=== PATIENT | female | born 1990 | race Caucasian/White ===

== ENCOUNTER → 2017-04-12 | Outpatient (CLI) | payer OTHER ==
--- NOTE | 2017-04-12 16:09 | XCELERA REPORT ---
[address] [address] Lower Extremity Venous Evaluation Name: ED FELIZ Age: 27 yrs Gender: Female : 1990 Patient Status: Outpatient Patient Location: Study Date: 04/12/2017 01:06 PM Procedure: Color flow and duplex imaging bilaterally of the veins of the lower extremities as well as the Common Femoral veins. Reason For Study: CALF PAIN Ordering Physician: MICHELLE MCKEON PA-C Performed By: Sunshine Munguia Right Sided Venous Evaluation Normal vessel filling wall to wall, compression and augmentation as well as Colour flow down to the infrageniculate veins. Left Sided Venous Evaluation Normal vessel filling wall to wall, compression and augmentation as well as Colour flow down to the infrageniculate veins. Interpretation Summary No duplex evidence of DVT or obstruction in the bilateral lower extremities. : MICHELLE MCKEON PA-C > Joe Swartz
== END ==
LOC: SP 12:56
PROVIDERS: ATTEND Physician Assistant
DX: M79.661 Pain in right lower leg (principal); M79.662 Pain in left lower leg
CPT/HCPCS: 93970

== ENCOUNTER 2017-04-15 10:59 | Emergency (ER) | payer OTHER ==
[2017-04-15 11:10] VITALS: BP 130/81
[2017-04-15] MEDS ORDERED: ACETAMINOPHEN 325 MG TABLET PO ONE (11:42)
[2017-04-15 12:09] LABS: APPEARANCE,URINE SLIGHTLY-CLOUDY; BILIRUBIN,URINE NEGATIVE (NEGATIVE); GLUCOSE, URINE NEGATIVE (NEGATIVE); KETONES,URINE NEGATIVE (NEGATIVE); LEUKOCYTE ESTERASE,URINE NEGATIVE (NEGATIVE); NITRITE,URINE NEGATIVE (NEGATIVE); PROTEIN,URINE NEGATIVE (NEGATIVE); URINE SPECIFIC GRAVITY 1.008; UROBILINOGEN,URINE NEGATIVE mg/dL (<2.0)
--- NOTE | 2017-04-15 12:25 | ER Document Report ---
ED Extremity Problem, Lower - General Chief Complaint: Leg Pain Stated Complaint: SWELLING OF HAND Time Seen by Provider: 04/15/17 11:17 Mode of Arrival: Ambulatory Information source: Patient Notes: 27-year-old female presents to ED for swollen hands and feet. She states she has been to her primary doctor and they did labs and told her they were not sure why her legs and feet or swelling she states now her left hand is swelling. I will do a urine to check for any protein in the urine and there will have her follow-up with her primary doctor. TRAVEL OUTSIDE OF THE [place] IN LAST 30 DAYS: No - HPI Patient complains to provider of: Swelling Location: Foot, Leg - And hands Occurred: Last week Onset/Duration: Intermittent Quality of pain: Pressure Severity: Moderate Pain Level: 3 Recent injury: No Associated symptoms: Other - Pain and swelling to her hands and feet and legs Exacerbated by: Hanging down Relieved by: Elevation - Related Data Allergies/Adverse Reactions: No Known Allergies Allergy (Verified 04/15/17 11:08) Past Medical History - General Information source: Patient - Social History Smoking Status: Never Smoker Cigarette use (# per day): No Chew tobacco use (# tins/day): No Smoking Education Provided: No Frequency of alcohol use: Rare Drug Abuse: None Lives with: Family Family History: Arthritis, CAD, DM, Hyperlipidemia, Hypertension, Thyroid Disfunction Patient has suicidal ideation: No Patient has homicidal ideation: No - Past Medical History Cardiac Medical History: Reports: None Pulmonary Medical History: Reports: Hx Asthma EENT Medical History: Reports: None Neurological Medical History: Reports: Hx Migraine Endocrine Medical History: Reports: None Renal/ Medical History: Reports: Other - Uterine fibroids Malignancy Medical History: Reports: None GI Medical History: Reports: None Musculoskeltal Medical History: Reports Hx Musculoskeletal Trauma Skin Medical History: Reports None Psychiatric Medical History: Reports: None Traumatic Medical History: Reports: None Past Surgical History: Reports: Hx Myringotomy, Hx Oral Surgery - wisdom teeth, Hx Orthopedic Surgery, Hx Tonsillectomy - 2014 - Immunizations Immunizations up to date: Yes Hx Diphtheria, Pertussis, Tetanus Vaccination: Yes Review of Systems - Review of Systems Constitutional: No symptoms reported EENT: No symptoms reported Cardiovascular: No symptoms reported Respiratory: No symptoms reported Gastrointestinal: No symptoms reported Genitourinary: No symptoms reported Female Genitourinary: No symptoms reported Musculoskeletal: Leg swelling, Ankle swelling, Other - Swelling left hand Skin: No symptoms reported Hematologic/Lymphatic: No symptoms reported Neurological/Psychological: No symptoms reported -: Yes All other systems reviewed and negative Physical Exam - Vital signs Vitals: Temp Pulse Resp BP Pulse Ox 98.3 F 87 20 130/81 H 100 04/15/17 11:09 04/15/17 11:09 04/15/17 11:09 04/15/17 11:09 04/15/17 11:09 Interpretation: Normal - General General appearance: Appears well, Alert - HEENT Head: Normocephalic, Atraumatic Eyes: Normal Pupils: PERRL - Respiratory Respiratory status: No respiratory distress Chest status: Nontender Breath sounds: Normal Chest palpation: Normal - Cardiovascular Rhythm: Regular Heart sounds: Normal auscultation Murmur: No - Abdominal Inspection: Normal Distension: No distension Bowel sounds: Normal Tenderness: Nontender Organomegaly: No organomegaly - Back Back: Normal, Nontender - Extremities General upper extremity: Nontender, Normal color, Normal ROM, Normal temperature General lower extremity: Nontender, Normal color, Normal ROM, Normal temperature , Normal weight bearing. No: Brittnee's sign Hand: Tender, No evidence of human bite, No evidence of FB, Swelling. No: Abrasion, Deformity, Dislocation, Ecchymosis, Instability, Laceration, Nail injury, Tendon deficit Calf: Other - Name Ankle: Tender, Edema. No: Abrasion, Deformity, Ecchymosis, Instability, Limited ROM, Positive Huertas's test, Unable to bear weight Foot: Tender, Edema, No evidence of FB. No: Abrasion, Deformity, Ecchymosis, Instability, Laceration, Metatarsal compress. pain, Nail injury, Tender 5th metatarsal, Unable to bear weight - Neurological Neuro grossly intact: Yes Cognition: Normal Orientation: AAOx4 Huntington Coma Scale Eye Opening: Spontaneous Huntington Coma Scale Verbal: Oriented Efraín Coma Scale Motor: Obeys Commands Efraín Coma Scale Total: 15 Speech: Normal Motor strength normal: LUE, RUE, LLE, RLE Sensory: Normal - Psychological Associated symptoms: Normal affect, Normal mood - Skin Skin Temperature: Warm Skin Moisture: Dry Skin Color: Normal Course - Re-evaluation Re-evalutation: 04/15/17 20:45 Discussed urine with patient and written report of urine given to patient patient to follow-up with her primary doctor. - Vital Signs Vital signs: Temp Pulse Resp BP Pulse Ox 98.3 F 87 20 130/81 H 100 04/15/17 11:09 04/15/17 11:09 04/15/17 11:09 04/15/17 11:09 04/15/17 11:09 Discharge - Discharge Clinical Impression: swelling of feet Swelling of hand Qualifiers: Laterality: bilateral Qualified Code(s): M79.89 - Other specified soft tissue disorders Condition: Stable Disposition: HOME, SELF-CARE Additional Instructions: Edema, Peripheral You have swelling in your legs. This is called peripheral edema. It can be caused by "leaky capillaries," inflammation, disease of the leg veins, or excess salt and water in your body. Edema may be a sign of heart, kidney, or liver disease. A medical evaluation can determine if there is a serious underlying cause for your edema. Avoid prolonged standing. If you must sit for a long time, occasionally get up and walk around or elevate your legs. Support stockings can be helpful in limiting swelling. Often diuretic or water pills are used to remove excess salt and water from your body. Call the doctor or return if you develop increased swelling, pain, or redness, shortness of breath, chest pain, or any other significant change. Limit your salt increase your fluids, limit your ibuprofen, elevate your arms and legs when possible. And follow-up with your doctor by telephone on today to schedule a follow-up appointment. FOLLOW-UP CARE: If you have been referred to a physician for follow-up care, call the physician s office for an appointment as you were instructed or within the next two days. If you experience worsening or a significant change in your symptoms, notify the physician immediately or return to the Emergency Department at any time for re-evaluation. Forms: Elevated Blood Pressure Referrals: MICHELLE MCKEON PA-C [Primary Care Provider] - Follow up as needed
== END 2017-04-15 12:47 | disposition home or self-care (01) ==
LOC: ER 10:59
DX: M79.89 Other specified soft tissue disorders (principal); J45.909 Unspecified asthma, uncomplicated
CPT/HCPCS: 81001; 81025; 99283